=== PATIENT | female | born 1995 | race Two or more races ===

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

== ENCOUNTER → 2017-01-10 | Outpatient (CLI) | payer MEDICAID | LOC: FIMAGING 11:13 | PROVIDERS: ATTEND Obstetrics & Gynecology | DX: Z36.89 Encounter for other specified antenatal screening (principal) ==